=== PATIENT | male | born 1975 | race Caucasian/White ===

== ENCOUNTER 2016-06-07 16:01 | Emergency (ER) | payer BC ==
[2016-06-07] MEDS ORDERED: Adenosine 6 MG/2 ML SDV ONE (16:16)
[2016-06-07] MEDS ORDERED: Sodium Chloride 0.9% 10 ML Syringe FLUSH PRN (16:30)
--- NOTE | 2016-06-07 16:46 | EDM.PDOC ---
ED HISTORY OF PRESENT ILLNESS - General Chief Complaint: Cardiovascular Problem Stated Complaint: FAST HEART RATE Time Seen by Provider: 06/07/16 16:29 Source: Reports: Patient, Old records, RN notes reviewed History Limitations: Reports: No limitations - History of Present Illness INITIAL COMMENTS - FREE TEXT/NARRATIVE: 40-year-old gentleman presents emergency department today complaining of palpitations does have a known history of SVT denies any chest pain nausea vomiting shortness of breath - Related Data Allergies/ADRs: Allergies Allergy/AdvReac Type Severity Reaction Status Date / Time No Known Allergies Allergy Verified 06/07/16 16:34 Home Meds: Home Meds Insulin Aspart [Novolog Flexpen] 1 dose SQ ASDIRECTED 05/28/14 [History] Insulin Glargine,Hum.Rec.Anlog [Lantus Solostar] 55 unit SQ BEDTIME 05/28/14 [ History] Lisinopril [Prinivil] 20 mg PO DAILY 05/28/14 [History] metFORMIN [Glucophage] 850 mg PO DAILY 05/28/14 [History] Past Medical History Cardiovascular History: Reports: Arrhythmia (SVT) Endocrine/Metabolic History: Reports: Diabetes, type II Social & Family History - Tobacco Use Smoking Status *Q: Never Smoker - Alcohol Use Days Per Week of Alcohol Use: 3 Number of Drinks Per Day: 3 Total Drinks Per Week: 9 - Recreational Drug Use Recreational Drug Use: No ED ROS GENERAL - Review of Systems Review Of Systems: See Below Constitutional: Reports: no symptoms Respiratory: Reports: No Symptoms Cardiovascular: Reports: Palpitations GI/Abdominal: Reports: No symptoms : Reports: no symptoms ED EXAM, GENERAL - Physical Exam Exam: See Below Exam Limited By: No limitations General Appearance: alert, WD/WN, no apparent distress Respiratory/Chest: no respiratory distress, lungs clear, normal breath sounds, no accessory muscle use, chest non-tender Cardiovascular: no murmur, tachycardia Course - Vital Signs Last Recorded V/S: Last Vital Signs Temp 97.9 F 06/07/16 16:26 Pulse 91 06/07/16 16:36 Resp 18 06/07/16 16:26 BP 113/73 06/07/16 16:36 Pulse Ox 96 06/07/16 16:36 - Orders/Labs/Meds Orders: Active Orders 24 hr Category Date Time Status Cardiac Monitoring [RC] .As Directed Care 06/07/16 16:30 Active EKG Documentation Completion [RC] ASDIRECTED Care 06/07/16 16:32 Active EKG Documentation Completion [RC] ASDIRECTED Care 06/07/16 16:33 Active Peripheral IV Care [RC] . DIRECTED Care 06/07/16 16:32 Active Sodium Chloride 0.9% [Saline Flush] Med 06/07/16 16:30 Active 10 ml FLUSH ASDIRECTED PRN Peripheral IV Insertion Adult [OM.PC] Stat Oth 06/07/16 16:30 Ordered Saline Lock Insert [OM.PC] Stat Oth 06/07/16 16:30 Ordered EKG 12 Lead [EK] Stat Ther 06/07/16 16:32 Ordered EKG 12 Lead [EK] Stat Ther 06/07/16 16:33 Ordered Medication Orders Sodium Chloride (Saline Flush) 10 ml FLUSH ASDIRECTED PRN PRN Reason: Keep Vein Open Last Admin: 06/07/16 16:40 Dose: 10 ml Labs: Laboratory Tests 06/07/16 06/07/16 Range/Units 16:45 16:45 WBC 8.2 (4.5-11.0) K/uL RBC 5.08 (4.30-5.90) M/uL Hgb 15.5 H (12.0-15.0) g/dL Hct 43.7 (40.0-54.0) % MCV 86 (80-98) fL MCH 31 (27-31) pg MCHC 36 (32-36) % Plt Count 223 (150-400) K/uL Neut % (Auto) 48 (36-66) % Lymph % (Auto) 35 (24-44) % [place] % (Auto) 12 H (2-6) % Eos % (Auto) 3 (2-4) % Baso % (Auto) 1 (0-1) % Sodium 138 L (140-148) mmol/L Potassium 4.8 (3.6-5.2) mmol/L Chloride 103 (100-108) mmol/L Carbon Dioxide 29 (21-32) mmol/L Anion Gap 10.8 (5.0-14.0) mmol/L BUN 15 (7-18) mg/dL Creatinine 0.9 (0.8-1.3) mg/dL Est Cr Clr Drug Dosing 125.58 mL/min Estimated GFR (MDRD) > 60 (>60) Glucose 367 H (74-106) mg/dL Calcium 8.9 (8.5-10.1) mg/dL Total Bilirubin 0.5 (0.2-1.0) mg/dL AST 14 L (15-37) U/L ALT 37 (12-78) U/L Alkaline Phosphatase 52 (46-116) U/L Troponin I < 0.017 (0.000-0.056) ng/mL Total Protein 6.7 (6.4-8.2) g/dL Albumin 3.7 (3.4-5.0) g/dL Globulin 3.0 (2.3-3.5) g/dL Albumin/Globulin Ratio 1.2 (1.2-2.2) Meds: Medications Generic Name Dose Route Start Last Admin Trade Name Freq PRN Reason Stop Dose Admin Sodium Chloride 10 ml 06/07/16 16:30 06/07/16 16:40 Saline Flush FLUSH 10 ml ASDIRECTED PRN Administration Keep Vein Open Discontinued Medications Generic Name Dose Route Start Last Admin Trade Name Freq PRN Reason Stop Dose Admin Adenosine Confirm 06/07/16 16:16 Adenocard Administered 06/07/16 16:17 Dose 18 mg .ROUTE .STK-MED ONE - Re-Assessments/Exams Free Text/Narrative Re-Assessment/Exam: 06/07/16 17:40 During my initial evaluation he was tachycardic ranging anywhere from 135-145 consistent with SVT had planned on doing adenosine however prior I had him do the Valsalva maneuver which did have a couple second positive and converted him to sinus rhythm please see strip for details Departure - Departure Time of Disposition: 17:42 Disposition: Home, Self-Care 01 Condition: good Clinical Impression: Paroxysmal supraventricular tachycardia Forms: ED Department Discharge Additional Instructions: Please followup with your primary care provider recommend consultation with electrophysiology - My Orders Last 24 Hours: My Active Orders 06/07/16 16:30 Cardiac Monitoring [RC] .As Directed Sodium Chloride 0.9% [Saline Flush] 10 ml FLUSH ASDIRECTED PRN Peripheral IV Insertion Adult [OM.PC] Stat Saline Lock Insert [OM.PC] Stat 06/07/16 16:32 EKG Documentation Completion [RC] ASDIRECTED Peripheral IV Care [RC] . DIRECTED EKG 12 Lead [EK] Stat 06/07/16 16:33 EKG Documentation Completion [RC] ASDIRECTED EKG 12 Lead [EK] Stat - Assessment/Plan Last 24 Hours: My Active Orders 06/07/16 16:30 Cardiac Monitoring [RC] .As Directed Sodium Chloride 0.9% [Saline Flush] 10 ml FLUSH ASDIRECTED PRN Peripheral IV Insertion Adult [OM.PC] Stat Saline Lock Insert [OM.PC] Stat 06/07/16 16:32 EKG Documentation Completion [RC] ASDIRECTED Peripheral IV Care [RC] . DIRECTED EKG 12 Lead [EK] Stat 06/07/16 16:33 EKG Documentation Completion [RC] ASDIRECTED EKG 12 Lead [EK] Stat Plan: Assessment Acuity = acute Site and laterality = supraventricular tachycardia palpated patient with known diabetes mellitus type 2 and known history of arrhythmia Etiology = unclear etiology Manifestations = none Location of injury = home Lab values = CBC unremarkable sodium low 138 consistent hyponatremia glucose elevated at 367 consistent hyperglycemia initial EKG demonstrates a junctional tachycardia 136 rhythm repeat EKG after Valsalva maneuver reveals a sinus rhythm Plan Observe him for more now are no change in his rhythm recommend he followup with his primary care for consultation with electrophysiology Patient was in agreement with the plan all questions were answered, they were instructed to return to the emergency department or call for worsening symptoms. This note was dictated using [email or web address] voice recognition software please call with any questions.
[2016-06-07 17:19] VITALS: BP 113/73
== END 2016-06-07 18:11 | disposition home or self-care (01) ==
LOC: JP.ED 16:01
DX: I47.1 Supraventricular tachycardia (principal); E11.9 Type 2 diabetes mellitus without complications; Z79.4 Long term (current) use of insulin; Z79.899 Other long term (current) drug therapy
CPT/HCPCS: 36415; 80053; 84484; 85025; 93005; 99285; J7050; J0153

== ENCOUNTER 2022-01-31 08:53 | Day surgery (SDC) | payer BC ==
[2022-01-31] MEDS ORDERED: Lactated Ringers 1,000 ML IV SCH (09:30)
[2022-01-31] MEDS ORDERED: Propofol 200 MG/20 ML SDV ONE ×3 (10:02→11:50)
[2022-01-31] MEDS ORDERED: fentaNYL 100 MCG/2 ML SDV ONE (10:02)
[2022-01-31] MEDS ORDERED: Midazolam 1 MG/ML 2 ML SDV ONE (10:02)
[2022-01-31] MEDS ORDERED: Diltiazem 180 MG Cap.CD PO ONE (10:15)
[2022-01-31 12:48] VITALS: BP 138/91; PULSE 65
== END 2022-01-31 12:54 | disposition home or self-care (01) ==
LOC: JP.SDS 08:53
PROVIDERS: ATTEND Student in an Organized Health Care Education/Training Program
DX: Z12.11 Encounter for screening for malignant neoplasm of colon (principal); D12.7 Benign neoplasm of rectosigmoid junction; D12.5 Benign neoplasm of sigmoid colon; K57.30 Diverticulosis of large intestine without perforation or abscess without bleeding; I10 Essential (primary) hypertension; E78.5 Hyperlipidemia, unspecified; E11.9 Type 2 diabetes mellitus without complications; E66.9 Obesity, unspecified; Z68.29 Body mass index [BMI] 29.0-29.9, adult; Z79.899 Other long term (current) drug therapy
CPT/HCPCS: 45385; 88305; A9270; J2250; J2704; J3010; J7120

== ENCOUNTER 2024-09-19 06:05 | Day surgery (SDC) | payer BC ==
[2024-09-19 06:28] LABS: PLATELET COUNT,PLT 266.0 K/uL (130-375); RED BLOOD CELL COUNT 4.03 M/uL (4.14-5.76); WHITE BLOOD CELL COUNT,WBC 6.6 K/uL (3.2-11.0)
[2024-09-19] MEDS: Magnesium Sulfate 2 GM/50 mL 2 GM in Premix Bag 1 BAG IV ONE (06:33)
[2024-09-19] MEDS: Lactated Ringers 1,000 ML IV SCH (06:33)
[2024-09-19 06:49] LABS: A/G RATIO 1.0 (1.2-2.2); ALANINE AMINOTRANSFERASE,ALT 37 U/L (12-78); ASPARTATE AMNIOTRANSFERASE,AST 24 U/L (15-37); BILIRUBIN TOTAL 0.5 mg/dL (0.2-1.0); BLOOD UREA NITROGEN,BUN 9 mg/dL (7-18); CARBON DIOXIDE,CO2 27 mmol/L (21-32); CHLORIDE,CL 104 mmol/L (100-108); CREATININE 0.7 mg/dL (0.8-1.3); ESTIMATED GFR 112 mL/min (>60); GLUCOSE RANDOM 121 mg/dL (74-106); POTASSIUM,K 3.6 mmol/L (3.6-5.2); PROTEIN TOTAL,TP 6.9 g/dL (6.4-8.2); SODIUM,NA 141 mmol/L (140-148)
[2024-09-19] MEDS ORDERED: Glycopyrrolate 0.2 MG/ML 5 ML MDV ONE (07:02)
[2024-09-19] MEDS ORDERED: Dexamethasone 4 MG/ML SDV ONE (07:02)
[2024-09-19] MEDS ORDERED: Succinylcholine 200 MG/10 ML MDV ONE (07:02)
[2024-09-19] MEDS ORDERED: Ondansetron 4 MG/2 ML SDV ONE (07:02)
[2024-09-19] MEDS ORDERED: Propofol 200 MG/20 ML SDV ONE (07:02)
[2024-09-19] MEDS ORDERED: fentaNYL 250 MCG/5 ML SDV ONE ×2 (07:03→09:07)
[2024-09-19] MEDS: Indocyanine Green 25 MG SDV IV ONE (08:07)
[2024-09-19] MEDS: metroNIDAZOLE/Normal Saline 500 MG in Premix Bag 1 BAG IV ONE (08:14)
[2024-09-19] MEDS ORDERED: Ketorolac 30 MG/ML SDV ONE (09:15)
[2024-09-19] MEDS: Lidocaine 1% with EPINEPHrine 1:100,000 50 ML MDV ONE (09:30)
[2024-09-19] MEDS: Acetaminophen/HYDROcodone 325-5 MG Tab PO SCH (11:49)
[2024-09-19 12:55] VITALS: BP 127/84; PULSE 84
== END 2024-09-19 13:10 | disposition home or self-care (01) ==
LOC: JP.SDS 06:05
PROVIDERS: ATTEND Surgery
DX: K81.1 Chronic cholecystitis (principal); K74.01 Hepatic fibrosis, early fibrosis; I10 Essential (primary) hypertension; F17.220 Nicotine dependence, chewing tobacco, uncomplicated; E11.311 Type 2 diabetes mellitus with unspecified diabetic retinopathy with macular edema; Z79.899 Other long term (current) drug therapy
CPT/HCPCS: 00790; 36415; 47379; 47562; 64488; 80053; 85027; A9270; J0171; J0330; J0665; J0690; J1100; J1596; J1836; J1885; J2405; J2704; J2710; J2795; J3010; J3475; J7120; J3490